=== PATIENT | male | born 2000 | race Hispanic/Latino ===

== ENCOUNTER 2021-03-05 05:40 | Day surgery (SDC) | payer OTHER ==
[2021-03-04 10:06] VITALS: BMI 26.8
[2021-03-05] MEDS ORDERED: Bacitracin Zinc Ointment 30 gm TUBE ONE (06:27)
[2021-03-05] MEDS ORDERED: Bupivacaine PF 0.5% 30 ML VIAL ONE (06:27)
[2021-03-05] MEDS ORDERED: Betamet Acet/Betamet Na Ph 30 MG/5 ML VIAL ONE (06:27)
[2021-03-05] MEDS ORDERED: Neomycin-Polymyxin 1 ML AMP ONE (06:27)
[2021-03-05] MEDS ORDERED: Ketamine 50 MG/ML (10ML VIAL) ONE (06:34)
[2021-03-05] MEDS ORDERED: Fentanyl 100 MCG/2 ML VIAL ONE (06:34)
[2021-03-05] MEDS ORDERED: Midazolam HCl 2 mg/2 ml Vial ONE (06:46)
[2021-03-05] MEDS ORDERED: Ondansetron PF 4 MG/2 ML Vial ONE (07:24)
[2021-03-05] MEDS ORDERED: ePHEDrine 50 MG/ML VIAL ONE (07:24)
[2021-03-05] MEDS ORDERED: PHENYLEPHRINE-NS 100 MCG/ML 10 ML SYRINGE ONE (07:24)
[2021-03-05] MEDS ORDERED: Lidocaine 1% PF 5 ML VIAL ONE (07:24)
[2021-03-05] MEDS ORDERED: Dexamethasone 20 MG/5 ML VIAL ONE (07:24)
[2021-03-05] MEDS ORDERED: PROPOFOL 200 MG/20 ML VIAL ONE (07:24)
[2021-03-05] MEDS ORDERED: Promethazine HCl 25 MG/ML VIAL IVPB PRN (09:42)
[2021-03-05] MEDS ORDERED: Ondansetron HCl/PF 4 MG/2 ML Vial IVP PRN (09:42)
[2021-03-05] MEDS ORDERED: Meperidine HCl/PF 25 MG/ML VIAL SLOW IVP PRN (09:42)
[2021-03-05] MEDS ORDERED: Promethazine HCl 25 MG/ML VIAL IM PRN (09:42)
[2021-03-05] MEDS ORDERED: Ketorolac Tromethamine 30 MG/ML VIAL ONE (10:00)
== END 2021-03-05 10:55 | disposition home or self-care (01) ==
LOC: SDC 05:40
PROVIDERS: ATTEND Orthopaedic Surgery Hand Surgery
PROC: 0LU707Z Supplement Right Hand Tendon with Autologous Tissue Substitute, Open Approach (ICD-10-PCS; principal; 2021-03-05)
PROC: 0RNW0ZZ Release Right Finger Phalangeal Joint, Open Approach (ICD-10-PCS; principal; 2021-03-05)
DX: Q68.1 Congenital deformity of finger(s) and hand (principal); M24.541 Contracture, right hand; S66.316A Strain of extensor muscle, fascia and tendon of right little finger at wrist and hand level, initial encounter; F84.0 Autistic disorder; X58.XXXA Exposure to other specified factors, initial encounter; Y93.67 Activity, basketball
CPT/HCPCS: 76000; J0690; J0702; J1100; J1885; J2250; J2405; J2704; J3010; J3490; S0020

== ENCOUNTER 2021-07-18 14:35 | Outpatient (CLI) | payer OTHER ==
[2021-07-19 11:37] LABS: SARS-CoV-2 PCR by NAA Not Detected (NotDetected)
== END 2021-07-18 14:36 | disposition home or self-care (01) ==
LOC: LABBT 14:35
PROVIDERS: ATTEND Orthopaedic Surgery Hand Surgery
DX: Z01.812 Encounter for preprocedural laboratory examination (principal); M25.541 Pain in joints of right hand; Z20.822 Contact with and (suspected) exposure to COVID-19
CPT/HCPCS: U0003; U0005

== ENCOUNTER 2021-07-23 07:26 | Day surgery (SDC) | payer OTHER ==
[2021-07-16 15:17] VITALS: BMI 24.7
[2021-07-23] MEDS ORDERED: Midazolam HCl 2 mg/2 ml Vial ONE (08:12)
[2021-07-23] MEDS ORDERED: ceFAZolin 2 GM/DEX 5% 100 ML BAG ONE (08:13)
[2021-07-23] MEDS ORDERED: Fentanyl 100 MCG/2 ML VIAL ONE (10:04)
[2021-07-23] MEDS ORDERED: Dexamethasone 20 MG/5 ML VIAL ONE (10:28)
[2021-07-23] MEDS ORDERED: Ondansetron PF 4 MG/2 ML Vial ONE (10:28)
[2021-07-23] MEDS ORDERED: Lidocaine 1% PF 5 ML VIAL ONE (10:28)
[2021-07-23] MEDS ORDERED: PROPOFOL 200 MG/20 ML VIAL ONE (10:28)
[2021-07-23] MEDS ORDERED: Ketorolac Tromethamine 30 MG/ML VIAL ONE (12:12)
== END 2021-07-23 13:11 | disposition home or self-care (01) ==
LOC: SDC 07:26
PROVIDERS: ATTEND Orthopaedic Surgery Hand Surgery
PROC: 0L870ZZ Division of Right Hand Tendon, Open Approach (ICD-10-PCS; principal; 2021-07-23)
PROC: 0RNW0ZZ Release Right Finger Phalangeal Joint, Open Approach (ICD-10-PCS; principal; 2021-07-23)
DX: M24.541 Contracture, right hand (principal)
CPT/HCPCS: J1100; J1885; J2250; J2405; J2704; J3010